=== PATIENT | female | born 1970 | race Caucasian/White ===

== ENCOUNTER → 2023-11-06 12:43 | Outpatient (REF) | payer BC, SELFPAY | LOC: RAD 12:43 | PROVIDERS: ATTENDING PHYSICIAN Internal Medicine; FAMILY PHYSICIAN Physician Assistant Medical | DX: M79.672 Pain in left foot (principal) | CPT/HCPCS: 73630 ==

== ENCOUNTER → 2024-02-16 16:52 | Outpatient (REF) | payer BC, SELFPAY | LOC: RAD 16:52 | PROVIDERS: ATTENDING PHYSICIAN Internal Medicine | DX: R07.81 Pleurodynia (principal) | CPT/HCPCS: 71101 ==

== ENCOUNTER → 2024-06-30 18:51 | Outpatient (REF) | payer BC, SELFPAY | LOC: WDC 18:51 | PROVIDERS: ATTENDING PHYSICIAN Obstetrics & Gynecology; FAMILY PHYSICIAN Internal Medicine | DX: Z12.31 Encounter for screening mammogram for malignant neoplasm of breast (principal) | CPT/HCPCS: 77063; 77067 ==

== ENCOUNTER → 2025-03-02 07:40 | Outpatient (REF) | payer BC, SELFPAY | LOC: HWRAD 07:40 | PROVIDERS: ATTENDING PHYSICIAN Physician Assistant Medical; FAMILY PHYSICIAN Internal Medicine Cardiovascular Disease | DX: R74.8 Abnormal levels of other serum enzymes (principal) | CPT/HCPCS: 76700 ==

== ENCOUNTER 2025-03-06 06:33 | Day surgery (SDC) | payer BC, SELFPAY | END 2025-03-06 11:35 | disposition home or self-care (01) | LOC: GI 06:33 | PROVIDERS: ATTENDING PHYSICIAN Internal Medicine | DX: D12.2 Benign neoplasm of ascending colon (principal); D12.3 Benign neoplasm of transverse colon; K57.30 Diverticulosis of large intestine without perforation or abscess without bleeding; K62.89 Other specified diseases of anus and rectum; K31.A0 Gastric intestinal metaplasia, unspecified; K31.89 Other diseases of stomach and duodenum; K21.00 Gastro-esophageal reflux disease with esophagitis, without bleeding; K22.89 Other specified disease of esophagus; R13.10 Dysphagia, unspecified; Z80.0 Family history of malignant neoplasm of digestive organs; Z83.79 Family history of other diseases of the digestive system | CPT/HCPCS: 45385; 43239; 88305; 88342 ==

== ENCOUNTER 2025-04-23 13:39 | Emergency (ER) | payer BC, SELFPAY ==
[2025-04-23 13:42] VITALS: BP 116/84
--- NOTE | 2025-04-23 14:00 | ED.GENMED ---
History of Present Illness
General
Chief Complaint: Musculo-Skeletal Complaint
Source: patient
Exam Limitations: none
Time Seen by Provider: 04/23/25 13:56
History of Present Illness
History of Present Illness:
55yo female presenting for evaluation of left foot pain after an injury around 11:30am this morning. She was walking in [facility] and her toe got stuck in the pant leg causing her to roll her left foot. She is presenting with pain to the lateral
aspect of the foot. No paresthesias. She injured that same foot last year while in [place] but did not fracture it.
Past History
Past History
ED Past Medical History: Asthma and Other ( Miscarriages, Bronchitis)
ED Past Surgical History: Gynecological (D&C)
Social History
Tobacco: Non-smoker
Alcohol: Occasional
Personal: Single
Living: with roommate
Employment: Employed ([employer])
Phy Exam
General Physical Exam
General Presentation: well appearing and no apparent distress
General Skin: warm and dry
General Habitus: normal
General Mental: alert
ENT Exam
ENT Exam: normocephalic
Neurological Exam
Neurological Exam: alert
Musculoskeletal Exam
Musculoskeletal Exam: other (Left foot: Focal swelling and ecchymosis noted to lateral dorsal foot with tenderness to proximal 5th metatarsal region. No deformity. Skin intact. Pain elicited with plantar flexion but ROM intact. 2+ DP pulse and
sensation intact.)
Skin Exam
Skin Exam: normal color and warm/dry
Psychiatric Exam
Psychiatric Exam: normal mood/affect
Course
Orders/Labs/Results
Orders:
Orders
04/23/25 13:40
Foot, Left 3 View [CR Foot - Left Min 3 Views] Urgent
Comment:
Reason For Exam: pain injury
04/23/25 14:09
Splints/Slings/Crut- Treatment ONCE
Location: Left
Type of Splint: Short Leg
04/23/25 14:14
Crutches-Treatment ONCE
Vital Signs
Initial and Last Documented VS:
Initial Vital Signs
Temp Pulse Resp BP Pulse Ox
98 F 106 16 116/84 99
04/23/25 13:42 04/23/25 13:42 04/23/25 13:42 04/23/25 13:42 04/23/25 13:42
Last Documented Vital Signs
Temp Pulse Resp BP Pulse Ox
98 F 106 16 116/84 99
04/23/25 13:42 04/23/25 13:42 04/23/25 13:42 04/23/25 13:42 04/23/25 14:02
MDM/Problems Addressed
Differential Diagnosis Includes:
55yoF here with L foot after an injury this afternoon. Swelling and tenderness noted to lateral foot on exam. LLE is neurovascularly intact. Differential diagnosis includes: sprain vs. fracture
X-rays of L foot obtained which confirm a 5th metatarsal fracture. Patient was placed in a short leg splint by orthodontic lab technician. Neurovascular status unchanged after splint placement. Advised NWB and outpatient f/u with orthopedics for further treatment.
She was discharged in stable condition.
*Pulse Oximetry
SaO2: 99
Oxygen Mode of Delivery: Room air
Patient hypoxic: no
*Critical Care Note
Total Time (30-74mins, 75-104mins- exclusive of procedures): Not Applicable
ED Attending Note
-
Portions of this chart may have been created with voice recognition software.� Occasional wrong word or��sound alike� substitutions may have occurred due to the inherent limitations of voice recognition software.
Discharge Plan
Departure
Patient Disposition: Home (Routine Discharge)
Date of Disposition: 04/23/25
Time of Disposition: 14:53
Patient with high blood pressure during this ER visit?: No
Discharge Problem:
Closed nondisplaced fracture of fifth left metatarsal bone
Instructions: Splint Care, Foot Fracture ED
Prescriptions:
No Action
albuterol sulfate 1 PUFF HFA aerosol inhaler
1 puff inhalation R Q4HPRN PRN (Reason: cough, breathing) Qty: 1 0RF
loratadine [Claritin] 10 mg Tablet
10 mg PO DAILY
prednisone 10 mg tablet
10 mg PO DIRECTED Qty: 30 0RF
Rx Instructions:
40mg daily *3 days start tommorrow
30mg daily * 3 days
20mg daily * 3 days
10mg daily * 3 days and stop
Robitussin Cough-Chest Leandro DM 5-100 mg/5 mL liquid
10 ml PO Q8H Qty: 118 0RF
benzonatate 100 mg capsule
100 mg PO TID PRN (Reason: Cough) Qty: 14 0RF
cephalexin 500 mg capsule
500 mg PO QID 7 Days Qty: 28 0RF
Referrals:
Anshul Lopes MD [Active, Orthopedics]
UNKNOWN - PT DOES,NOT KNOW [Unknown Provider]
Stand Alone Forms: Return to Work
Activity Restrictions/Additional Instructions:
Keep splint in place and do not get wet. Use crutches and do not bear weight until seen by orthopedics. Take Tylenol and ibuprofen as needed for pain.
Please call tomorrow to schedule a follow-up appointment with orthopedics.
Interventions
Interventions:
*Risk Screen - Suicide Last Done: 04/23/25 13:42
*Neglect/Abuse Screening Last Done: 04/23/25 13:42
*Nursing Disposition Last Done: 04/23/25 15:09
ED-Musculoskeletal Assessment Last Done: 04/23/25 15:08
Discharge Date and Time
Discharge Date/Time: 04/23/25 15:10
Print Language: ROMANIAN
== END 2025-04-23 15:10 | disposition home or self-care (01) ==
LOC: EMR 13:39
PROVIDERS: EMERGENCY PHYSICIAN Emergency Medicine; FAMILY PHYSICIAN Physician Assistant Medical
DX: S92.352A Displaced fracture of fifth metatarsal bone, left foot, initial encounter for closed fracture (principal); X50.1XXA Overexertion from prolonged static or awkward postures, initial encounter; Y93.01 Activity, walking, marching and hiking; J45.909 Unspecified asthma, uncomplicated
CPT/HCPCS: 99283; 29515; 73630